=== PATIENT | female | born 1960 | race Caucasian/White ===

== ENCOUNTER 2018-09-16 17:37 | Emergency (ER) | payer OTHER ==
[2018-09-16 17:47] VITALS: BP 103/66; PULSE 69; TEMP 97.8; BMI 21.7
--- NOTE | 2018-09-16 18:47 | PDOC ---
History of Present Illness - General Chief Complaint: Nausea/Vomiting Stated Complaint: VOMITTING/BACK PAIN/RADIATING TO THE FRONT Time Seen by Provider: 09/16/18 18:36 History Source: Patient - History of Present Illness Initial Comments: 09/16/18 19:07 57F with pmh of HTN and anemia presetns to the ED with right flank pain since 3pm today raiating to her groin. Pain is 6/10, no associated with dysuria. Currently non-radiating. Was admitted for renal colic back in 2014 in this institution but patient doesn' t remember. Vomited 3 times since the pain started. Doesn't feel nauseated at the moment. Also complains of a "weakness" over the left chest. Some sort of mild and vague burning sensation starting in her sinus, involving her chest when she takes a deep breath, however not shortness of breath or pain. She clearly has trouble describing the strange feeling. She felt this since yesterday, had an EKG done which was negative. Denies fever, chills, dysuria, chest pain, sob, diarrhea. Past History - Past Medical History Allergies/Adverse Reactions: Allergies Allergy/AdvReac Type Severity Reaction Status Date / Time No Known Drug Allergies Allergy Verified 09/16/18 17:47 Home Medications: Ambulatory Orders Amlodipine Besylate [Norvasc -] 5 mg PO DAILY 09/16/18 Anemia: Yes COPD: No HTN: Yes - Suicide/Smoking/Psychosocial Hx Smoking History: Never smoked Have you smoked in the past 12 months: No Number of Cigarettes Smoked Daily: 0 Hx Alcohol Use: No Drug/Substance Use Hx: No Substance Use Type: None Review of Systems - Review of Systems Able to Perform ROS?: Yes Is the patient limited [place] proficient: No Constitutional: No: Symptoms Reported HEENTM: No: Symptoms Reported Respiratory: No: Symptoms reported Cardiac (ROS): No: Symptoms Reported ABD/GI: Yes: See HPI : No: Symptoms Reported Musculoskeletal: No: Symptoms Reported Integumentary: No: Symptoms Reported All Other Systems: Reviewed and Negative *Physical Exam - Vital Signs Last Vital Signs Temp Pulse Resp BP Pulse Ox 97.8 F 69 18 103/66 100 09/16/18 17:44 09/16/18 17:44 09/16/18 17:44 09/16/18 17:44 09/16/18 17:44 - Physical Exam General Appearance: Yes: Nourished, Appropriately Dressed. No: Apparent Distress HEENT: positive: EOMI, LESLEY, Normal ENT Inspection Respiratory/Chest: positive: Lungs Clear, Normal Breath Sounds. negative: Chest Tender, Respiratory Distress Cardiovascular: positive: Regular Rhythm, Regular Rate, S1, S2 Gastrointestinal/Abdominal: positive: Normal Bowel Sounds, Flat, Soft. negative : Tender Musculoskeletal: positive: CVA Tenderness (R) Extremity: positive: Normal Capillary Refill, Normal Inspection, Normal Range of Motion Integumentary: positive: Normal Color, Dry, Warm Neurologic: positive: Fully Oriented, Normal Mood/Affect, Motor Strength 06/17 ED Treatment Course - LABORATORY CBC & Chemistry Diagram: 09/16/18 18:52 09/16/18 18:52 Medical Decision Making - Medical Decision Making 09/16/18 19:23 57f with right flank pain/tendernesss and h/o renal colic,. Will check ua for evidence of blood in the urine after which we will treat accordingly, ruling out kidney stones. Will also r/o UTi, and pyelo although this is less likely as patient is not febrile, stable vitals. Low suspicion for aortic dissection, patient not hypertensive, and pain level is rather low. Will also check trops and ekg to r/o ND as per the patient's chest complaints. 09/16/18 19:43 EKG: Normal sinus rhythm, Possible left atrial enlargement. Vent Rate 66, MT: 170, QRS: 90, QT/QTC 424/444 09/16/18 20:08 Mild R hydronephrosis on bedside ultrasound. Will correlate with offical ultrasound. UA negative for blood or infection. Official renal US: IMPRESSION: 1. Mild to moderate right-sided hydronephrosis. 2. Increased echogenicity of the right renal parenchyma, suggesting chronic renal parenchymal disease. 3. Right renal cyst. Will discharge with follow up *DC/Admit/Observation/Transfer Diagnosis at time of Disposition: Flank pain - Discharge Dispostion Disposition: HOME Condition at time of disposition: Stable Decision to Admit order: No - Referrals Referrals: Byron Lazcano MD [Primary Care Provider] - - Patient Instructions Printed Discharge Instructions: DI for Flank Pain Additional Instructions: Follow up with Dr. Lazcano within the next 3-4 days. Come back to the emergency department for any new, worsening or concerning symptom. - Post Discharge Activity
[2018-09-16 19:27] LABS: BASO % 0.2 % (0-2.0); HEMATOCRIT 40.5 % (32.4-45.2); HEMOGLOBIN 13.5 GM/dL (10.7-15.3); LYMPH % 10.3 % (8-40); MCH 30.8 pg (25.7-33.7); MCHC 33.4 g/dl (32.0-36.0); MEAN CELL VOLUME 92.2 fl (80-96); MEAN PLT VOLUME 8.7 fl (7.5-11.1); MONO % 3.2 % (3.8-10.2); NEUT % 86.3 % (42.8-82.8); PLATELET COUNT 246 K/MM3 (134-434); RBC 4.39 M/mm3 (3.60-5.2); RDW 12.7 % (11.6-15.6); WHITE BLOOD COUNT 6.5 K/mm3 (4.0-10.0)
[2018-09-16 19:28] LABS: PH,URINE 6.5 (5.0-8.0); URINE APPEARANCE CLEAR; URINE BILIRUBIN NEGATIVE (NEGATIVE); URINE COLOR YELLOW; URINE GLUCOSE (UA) NEGATIVE (NEGATIVE); URINE KETONE 1+ (NEGATIVE); URINE LEUK ESTERASE NEGATIVE (NEGATIVE); URINE NITRITE NEGATIVE (NEGATIVE); URINE PROTEIN NEGATIVE (NEGATIVE); URINE UROBILINOGEN 0.2 mg/dL (0.2-1.0)
[2018-09-16 19:49] LABS: ALBUMIN 3.9 g/dl (3.4-5.0); BILIRUBIN,TOTAL 0.5 mg/dL (0.2-1); BLOOD UREA NITROGEN 8.3 mg/dL (7-18); CALCIUM 9.6 mg/dL (8.5-10.1); CREATININE 0.9 mg/dL (0.55-1.3); TOT PROT 7.2 g/dl (6.4-8.2)
--- NOTE | 2018-09-16 22:40 | PDOC ---
Documentation entered by Randi Leblanc SCRIBE, acting as scribe for Sierra Weaver MD. Sierra Weaver MD: This documentation has been prepared by the scribe, Randi Leblanc SCRIBE, under my direction and personally reviewed by me in its entirety. I confirm that the documentation accurately reflects all work, treatment, procedures, and medical decision making performed by me. Attending Attestation - Resident Resident Name: Travon Coker - ED Attending Attestation I have performed the following: I have examined & evaluated the patient, The case was reviewed & discussed with the resident, I agree w/resident's findings & plan, Exceptions are as noted - HPI HPI: 09/16/18 20:11 The patient is a 57-year-old female with a past medical history significant for HTN and anemia presents to the emergency department with right flank pain since 3:00 pm The patient reports an additional complaint of left-sided chest discomfort. The patient states she is scheduled to follow up with a architectural model maker. The patient indicates she is scheduled for a bone density test on the of this month. - Physicial Exam PE: 09/16/18 22:35 slender 57 yo female with flank pain head ncat neck supple lungs cta b/l cvs [id number] abd no rebound,no0 guarding Mild left flank pain skin warm and dry extremities no deformities neuro axox3,ambulatory psych appropriate - Medical Decision Making EXAM: KIDNEY / RENAL US IMPRESSION: * Mild to moderate right-sided hydronephrosis. * Increased echogenicity of the right renal parenchyma, suggesting chronic renal parenchymal disease. * Right renal cyst. THIS DOCUMENT HAS BEEN ELECTRONICALLY SIGNED Shree Hernadez MD 09/16/2018 20:51 EST 09/16/18 22:38 imp rt flank pain, chronic hydronephrosis pt had no obstructive uropathy , no pyelo discharged home with follow up tomorrow by her PCP
--- NOTE | 2018-09-19 13:39 | EKG ---
Test Reason : Blood Pressure : / mmHG Vent. Rate : 066 BPM Atrial Rate : 066 BPM P-R Int : 170 ms QRS Dur : 090 ms QT Int : 424 ms P-R-T Axes : 054 057 065 degrees QTc Int : 444 ms NORMAL SINUS RHYTHM POSSIBLE LEFT ATRIAL ENLARGEMENT BORDERLINE ECG WHEN COMPARED WITH ECG OF 14-SEP-2018 10:58, NO SIGNIFICANT CHANGE WAS FOUND Confirmed by SHELIA RUTHERFORD MD ([id number]) on 09/19/2018 1:39:36 PM Referred By: Confirmed By:SHELIA RUTHERFORD MD
== END 2018-09-16 21:16 | disposition home or self-care (01) ==
LOC: JER 17:37
PROC: BT43ZZZ Ultrasonography of Bilateral Kidneys (ICD-10-PCS; principal; 2018-09-16)
DX: N13.30 Unspecified hydronephrosis (principal); I10 Essential (primary) hypertension; Z86.2 Personal history of diseases of the blood and blood-forming organs and certain disorders involving the immune mechanism
CPT/HCPCS: 36415; 76775-TC; 80053; 81003; 84484; 84703; 85025; 87086; 93005; 93010; 99283-25

== ENCOUNTER 2019-01-06 17:59 | Emergency (ER) | payer OTHER ==
[2019-01-06 18:11] VITALS: BMI 21.3
--- NOTE | 2019-01-06 18:48 | PDOC ---
Documentation entered by Kaye Foy SCRIBE, acting as scribe for Sierra Weaver MD. Sierra Weaver MD: This documentation has been prepared by the fabianibe, Kaye Foy SCRIBE, under my direction and personally reviewed by me in its entirety. I confirm that the documentation accurately reflects all work, treatment, procedures, and medical decision making performed by me. Attending Attestation - Resident Resident Name: MoBilly - ED Attending Attestation I have performed the following: I have examined & evaluated the patient, The case was reviewed & discussed with the resident, I agree w/resident's findings & plan, Exceptions are as noted - HPI HPI: 01/06/19 19:07 58-year-old female presents with 3 to 4 hours of right-sided flank pain associated with nausea and one episode of vomiting. She has had these similar symptoms a few months ago. 01/06/19 19:18 The patient is a 58 year old female with a significant past medical history of HTN and anemia who presents to the ED with right flank pain for 3 hours. Patient reports that her right flank pain came on suddenly and radiates to her back. Patient notes one episode of NBNB nausea and vomiting. Patient had been seen for similar symptoms multiple times in the past. Patient denies any recent fever,chills, headache or dizziness. She denies any recent constipation or diarrhea.She denies recent dysuria, frequency, urgency or hematuria. She denies recent chest pain or shortness of breath. Allergies: NKA Past surgical history: Hysterectomy Social history: Nonsmoker. Denies EtOH use and recreational drug use. PCP: Joanna Lazcano - Physicial Exam PE: 01/06/19 19:18 GENERAL: Well developed, well nourished. Awake and alert. No acute distress. HEENT: Normocephalic, atraumatic. PERRLA, EOMI. No conjunctival pallor. Sclera are non- icteric. Moist mucous membranes. Oropharynx is clear. NECK: Supple. Full ROM. No JVD. Carotid pulses 2+ and symmetric, without bruits. No thyromegaly. No lymphadenopathy. CARDIOVASCULAR: Regular rate and rhythm. No murmurs, rubs, or gallops. Distal pulses are 2+ and symmetric. PULMONARY: No evidence of respiratory distress. Lungs clear to auscultation bilaterally. No wheezing, rales or rhonchi. ABDOMINAL: Soft. Non-tender. Non-distended. No rebound or guarding. No organomegaly. Normoactive bowel sounds. MUSCULOSKELETAL + right flank pain Normal range of motion at all joints. No bony deformities or tenderness. EXTREMITIES: No cyanosis. No clubbing. No edema. No calf tenderness. SKIN: Warm and dry. Normal capillary refill. No rashes. No jaundice. NEUROLOGICAL: Alert, awake, appropriate. Cranial nerves 2-12 intact. No deficits to light touch and temperature in face, upper extremities and lower extremities. No motor deficits in the in face, upper extremities and lower extremities. Normoreflexic in the upper and lower extremities. Normal speech. Toes are down- going bilaterally. Gait is normal without ataxia. PSYCHIATRIC: Cooperative. Good eye contact. Appropriate mood and affect - Medical Decision Making 01/06/19 19:08 Was seen here several months ago with similar complaint and on September 16, 2018 had a renal ultrasound that showed moderate right renal hydronephrosis with a small simple cyst measuring 1.4 cm x 1.4 cm. Left kidney appeared unremarkable. There were no gross renal stones identified at that time. 01/06/19 23:16 CAT scan of the abdomen pelvis shows mild hydronephrosis but no stones, there is also mild colonic wall thickening that can be inflammatory or infectious colitis UA is negative CBC unremarkable Chemistries unremarkable except for BUN of 19 and a glucose of 125 01/06/19 23:20
[2019-01-06] MEDS ORDERED: KETOROLAC TROMETHAMINE 30 MG/1 ML VIAL IVPUSH ONE (18:58)
--- NOTE | 2019-01-06 19:07 | PDOC ---
History of Present Illness - General Chief Complaint: Pain Stated Complaint: PAIN Time Seen by Provider: 01/06/19 18:34 - History of Present Illness Initial Comments: Ms. Aguilar is a 58 y/o female with PMH significant for hydronephrosis and UPJ obstruction presenting today with right flank pain that radiates down to the groin. Reports that this pain started 3 hours ago. Reports nausea and vomiting x1. She has had similar pain before in the past and has been worked up but has not seen a specialist. Denies fever, chills. Denies shortness of breath. Denies abdominal pain. Denies dysuria or hematuria. Denies constipation/diarrhea. Past History - Past Medical History Allergies/Adverse Reactions: Allergies Allergy/AdvReac Type Severity Reaction Status Date / Time No Known Drug Allergies Allergy Verified 01/06/19 18:06 Home Medications: Ambulatory Orders Amlodipine Besylate [Norvasc -] 5 mg PO DAILY 09/16/18 B12/Iodin/Mag/Zinc/Rachna/[id number] [Adrenoid Capsule] 1 each PO DAILY 01/06/19 Calcium Carbonate [Calcium] 500 mg PO DAILY 01/06/19 Multivitamin [Multiple Vitamins] 1 each PO DAILY 01/06/19 Anemia: Yes COPD: No HTN: Yes - Psycho Social/Smoking Cessation Hx Smoking History: Never smoked Have you smoked in the past 12 months: No Number of Cigarettes Smoked Daily: 0 Hx Alcohol Use: No Drug/Substance Use Hx: No Substance Use Type: None Review of Systems - Review of Systems Comments:: GENERAL/CONSTITUTIONAL: No fever or chills. No weakness._ HEAD, EYES, EARS, NOSE AND THROAT: No change in vision. No change in hearing. No sore throat._ CARDIOVASCULAR: No chest pain or shortness of breath_ RESPIRATORY: Denies cough, hemoptysis_ GASTROINTESTINAL: Reports nausea and vomiting. No diarrhea or constipation._ GENITOURINARY: No dysuria, frequency, or change in urination._ MUSCULOSKELETAL: Reports right flank pain. No neck or back pain._ SKIN: No rash_ NEUROLOGIC: No headache, vertigo, loss of consciousness, or change in strength/ sensation._ ENDOCRINE: No increased thirst. No abnormal weight change_ HEMATOLOGIC/LYMPHATIC: No anemia, easy bleeding, or history of blood clots._ ALLERGIC/IMMUNOLOGIC: No hives or skin allergy._ *Physical Exam - Vital Signs Last Vital Signs Temp Pulse Resp BP Pulse Ox 97.7 F 59 L 18 119/70 100 01/06/19 18:00 01/06/19 18:00 01/06/19 18:00 01/06/19 18:00 01/06/19 18:00 - Physical Exam Comments: GENERAL: Awake, alert, and oriented to person/place/time, in no acute distress_ HEAD: No signs of trauma, normocephalic, atraumatic _ EYES: PERRLA, EOMI, sclera anicteric, conjunctiva clear_ ENT: Hearing grossly normal, nares patent, oropharynx clear without exudates. No uvular deviation. Moist mucosa_ NECK: Normal ROM, supple, no lymphadenopathy, JVD, or masses_ LUNGS: No distress, speaks in full sentences, clear to auscultation bilaterally _ HEART: Regular rate and rhythm, normal S1 and S2, no murmurs appreciated, peripheral pulses normal and equal bilaterally._ ABDOMEN: Soft, nontender, normoactive bowel sounds. No guarding, no rebound. No masses_ BACK: Positive right CVA tenderness. Positive right flank tenderness. EXTREMITIES: Normal inspection, Normal range of motion, no edema. No clubbing or cyanosis_ NEUROLOGICAL: Cranial nerves II through XII grossly intact. Normal speech, normal gait, no focal sensorimotor deficits _ SKIN: Warm, Dry, normal turgor, no rashes or lesions noted_ ED Treatment Course - LABORATORY CBC & Chemistry Diagram: 01/06/19 19:12 01/06/19 19:12 - RADIOLOGY Radiology Studies Ordered: Category Date Time Status ABDOMEN & PELVIS CT WITH CONTR [CT] Stat CT Scan 01/06/19 18:58 Ordered Medical Decision Making - Medical Decision Making 58F hx of right sided hydronephrosis and UPJ obstruction presenting with right flank pain that started 3 hours ago. -cbc, cmp -ct abd/pelv w/ contrast -toradol for pain relief -ua, ucx 01/06/19 20:00 Pt reassessed. Reports pain has significantly improved with Toradol. 01/06/19 20:08 Labs reviewed. Laboratory Tests 01/06/19 01/06/19 01/06/19 19:12 19:12 19:15 WBC 6.5 RBC 4.18 Hgb 13.1 Hct 38.3 MCV 91.5 MCH 31.2 MCHC 34.1 RDW 13.1 Plt Count 270 MPV 8.3 Absolute Neuts (auto) 5.7 Neutrophils % 87.2 H Lymphocytes % 10.0 Monocytes % 2.5 L Eosinophils % 0.0 Basophils % 0.3 Nucleated RBC % 0 Sodium 140 Potassium 3.9 Chloride 109 H Carbon Dioxide 27 Anion Gap 4 L BUN 19.4 H Creatinine 0.7 Est GFR (CKD-EPI)AfAm 112.26 Est GFR (CKD-EPI)NonAf 96.86 Random Glucose 125 H Calcium 9.3 Total Bilirubin 0.3 AST 24 ALT 28 Alkaline Phosphatase 113 Total Protein 6.9 Albumin 3.7 Urine Color Yellow Urine Appearance Cloudy Urine pH 7.5 Ur Specific [place] 1.020 Urine Protein Negative Urine Glucose (UA) Negative Urine Ketones 1+ H Urine Blood Negative Urine Nitrite Negative Urine Bilirubin Negative Urine Urobilinogen 0.2 Ur Leukocyte Esterase Negative 01/06/19 22:49 CT abd/pelv w/ contrast shows moderate right hydronephrosis without hydroureter , no urolithiasis. Possible benign vs malignant stricturing at the UPJ. Mild diffuse wall thickening of the colon, finndings may reflect infectious or inflammatory colitis. 01/06/19 23:52 Pt reassessed. Reports that pain and nausea have improved. Plan to d/c home, f/ u PCP, urology, GI. Patient verbalized understanding and agreement with the plan. All questions answered. Patient understands importance of urology f/u. Discharge - Discharge Information Problems reviewed: Yes Clinical Impression/Diagnosis: Flank pain Condition: Stable Disposition: HOME - Admission No - Follow up/Referral Referrals: Travis Calzada MD., [Staff Physician] - Byron Lazcano MD [Primary Care Provider] - Shayla Cota MD [Staff Physician] - - Patient Discharge Instructions Patient Printed Discharge Instructions: DI for Flank Pain Additional Instructions: Please take Tylenol or Motrin as needed for your pain (follow instructions on the package). Please make a follow up appointment with your primary care doctor, as well as a urologist and a display trimmer (referrals provided here). Your CT scan showed hydronephrosis of the right kidney - it is imperative that you follow up with a urologist. If you experience any new, worsening, or concerning symptoms, including fever, chills, severe back pain, blood in the urine, painful urination, or any other concerns, please return to the emergency department. - Post Discharge Activity Work/Back to School Note: Back to Work
[2019-01-06] MEDS ORDERED: KETOROLAC TROMETHAMINE 30 MG/1 ML VIAL ONE (19:25)
[2019-01-06 19:27] LABS: BASO % 0.3 % (0-2.0); HEMATOCRIT 38.3 % (32.4-45.2); HEMOGLOBIN 13.1 GM/dL (10.7-15.3); MCH 31.2 pg (25.7-33.7); MCHC 34.1 g/dl (32.0-36.0); MEAN CELL VOLUME 91.5 fl (80-96); MEAN PLT VOLUME 8.3 fl (7.5-11.1); MONO % 2.5 % (3.8-10.2); NEUT % 87.2 % (42.8-82.8); PLATELET COUNT 270 K/MM3 (134-434); RBC 4.18 M/mm3 (3.60-5.2); RDW 13.1 % (11.6-15.6); WHITE BLOOD COUNT 6.5 K/mm3 (4.0-10.0)
[2019-01-06 19:35] LABS: PH,URINE 7.5 (5.0-8.0); URINE APPEARANCE CLOUDY; URINE BILIRUBIN NEGATIVE (NEGATIVE); URINE COLOR YELLOW; URINE GLUCOSE (UA) NEGATIVE (NEGATIVE); URINE KETONE 1+ (NEGATIVE); URINE LEUK ESTERASE NEGATIVE (NEGATIVE); URINE NITRITE NEGATIVE (NEGATIVE); URINE PROTEIN NEGATIVE (NEGATIVE); URINE UROBILINOGEN 0.2 mg/dL (0.2-1.0)
[2019-01-06] MEDS ORDERED: SODIUM CHLORIDE 0.9% 500 ML INFUS.BAG IV ONE (19:44)
[2019-01-06 19:54] LABS: ALBUMIN 3.7 g/dl (3.4-5.0); BILIRUBIN,TOTAL 0.3 mg/dL (0.2-1); BLOOD UREA NITROGEN 19.4 mg/dL (7-18); CALCIUM 9.3 mg/dL (8.5-10.1); CREATININE 0.7 mg/dL (0.55-1.3); POTASSIUM 3.9 mmol/L (3.5-5.1); TOT PROT 6.9 g/dl (6.4-8.2)
[2019-01-06 21:34] VITALS: TEMP 98.2
[2019-01-06] MEDS ORDERED: ONDANSETRON 4 MG/2 ML VIAL IVPUSH ONE (22:50)
[2019-01-06] MEDS ORDERED: ONDANSETRON 4 MG/2 ML VIAL ONE ×2 (23:11→23:22)
[2019-01-06 23:59] VITALS: BP 114/75; PULSE 73
== END 2019-01-06 23:59 | disposition home or self-care (01) ==
LOC: SUPCPDRO 17:59 → JER 17:59
PROC: 3E033GC Introduction of Other Therapeutic Substance into Peripheral Vein, Percutaneous Approach (ICD-10-PCS; principal; 2019-01-06)
PROC: 3E0333Z Introduction of Anti-inflammatory into Peripheral Vein, Percutaneous Approach (ICD-10-PCS; 2019-01-06)
DX: R10.31 Right lower quadrant pain (principal); N13.39 Other hydronephrosis; N28.1 Cyst of kidney, acquired; I10 Essential (primary) hypertension
CPT/HCPCS: 36415; 74177-TC; 80053; 81003; 85025; 87086; 99284-25

== ENCOUNTER 2019-02-19 08:56 | Day surgery (SDC) | payer OTHER ==
[2019-02-14 14:37] VITALS: BMI 21.3
[~2019-02-19 08:56] MED LIST: ceFAZolin SODIUM 1 GM VIAL IVPB ONE
[2019-02-19] MEDS ORDERED: MIDAZOLAM HCL 2 MG/2 ML SINGLE DOSE VIAL ONE (12:02)
[2019-02-19] MEDS ORDERED: ceFAZolin SODIUM 1 GM VIAL IVPB ONE (12:40)
[2019-02-19] MEDS ORDERED: oxyCODONE HCL 5 MG TABLET PO PRN ×3 (13:15→15:46)
[2019-02-19] MEDS ORDERED: PROMETHAZINE HCL 25 MG/1 ML VIAL IVPB PRN (13:15)
[2019-02-19] MEDS ORDERED: ONDANSETRON 4 MG/2 ML VIAL IVPUSH PRN (13:15)
[2019-02-19] MEDS ORDERED: GENTAMICIN 80MG PREMIX BAG IVPB ONE (13:39)
[2019-02-19] MEDS ORDERED: LACTATED RINGERS SOLUTION 1,000 ML IV SCH (14:30)
[2019-02-19] MEDS ORDERED: KETOROLAC TROMETHAMINE 30 MG/1 ML VIAL IVPUSH ONE ×2 (15:33→15:35)
[2019-02-19] MEDS ORDERED: HYDROmorphone HCl 2 MG/ML VIAL IVPUSH PRN (15:34)
[2019-02-19] MEDS ORDERED: KETOROLAC TROMETHAMINE 30 MG/1 ML VIAL ONE (15:36)
[2019-02-19] MEDS ORDERED: HYDROmorphone HCl 2 MG/ML VIAL ONE (15:37)
[2019-02-19] MEDS ORDERED: ONDANSETRON 4 MG/2 ML VIAL ONE (15:45)
--- NOTE | 2019-02-19 15:50 | OP ---
Operative Note - Note: Operative Date: 02/19/19 Pre-Operative Diagnosis: Right UPJ obstruction Operation: Right Endopylotomy Findings: obstructed right UPJ Post-Operative Diagnosis: Same as Pre-op Surgeon: Travis Calzada MD. Anesthesia: General Operative Report Dictated: Yes
[2019-02-19] MEDS ORDERED: HYDROmorphone HCl 2 MG/ML VIAL IVPUSH ONE (16:10)
--- NOTE | 2019-02-19 17:24 | OP ---
DATE OF OPERATION: 02/19/2019 PREOPERATIVE DIAGNOSIS: Right ureterovesical junction obstruction. POSTOPERATIVE DIAGNOSIS: Right ureterovesical junction obstruction. PROCEDURE: Right endopyelotomy. HISTORY: This is a very pleasant 58-year-old female with a history of prior UTI, some vague flank discomfort. Preoperative imaging was found to have an obstructive right UPJ and dilated renal pelvis and blunt . After discussing treatment options, patient elected to undergo above-stated procedure. Risks and benefits of treatment, alternative treatments discussed in detail. All questions were answered. ATTENDING SURGEON: Parviz Bowles M.D. BRIEF OPERATIVE NOTE: Patient was brought in the operating room, placed in supine position. General anesthesia was administered. Patient was transferred to dorsal lithotomy position, Ancef was given. At this time, a 0.03 Sensor wire was passed up into the renal pelvis; this was confirmed fluoroscopically. A retrograde ureteropyelogram was performed identifying UPJ obstruction. The was somewhat low in position and it was likely contributing to the etiology of the obstruction. The calyces were again noted to be blunted. At this time a 2nd wire was passed into the renal pelvis. The 7.5-Tristanian flexible ureteroscope was passed over the wire into the renal pelvis. Using a 200-micron fiber at a setting of 1, 10, and 15 megahertz, a posterolateral incision was made in the UPJ. The small amount of fat was seen. The UPJ appeared to be open. The scope was able to be brought in and out across the UPJ. At this time, the scope was removed. An 8-Tristanian Double J stent was attempted to be passed up across the UPJ, however the stent would not advance. In attempting to advance the stent, wire backed down to the proximal ureter below the UPJ. At this time, the 7.5-Tristanian flexible ureteroscope was then advanced into the UPJ. After several unsuccessful attempts, a wire was able to be negotiated across the UPJ and the renal pelvis was examined again. It was examined endoscopically. Again the 8-Tristanian stent would not go up. Therefore, a 6-Tristanian Double J stent was passed over the wire and across the UPJ and was placed in normal position. ADE CROUCH M.D. LIZETTE/[id number]
[2019-02-19 17:36] VITALS: TEMP 97.7
[2019-02-19] MEDS ORDERED: ACETAMINOPHEN INJECTION 100 ML IVPB ONE (18:01)
[2019-02-19] MEDS ORDERED: traMADol HCL 50 MG TABLET ONE (19:45)
[2019-02-19] MEDS ORDERED: traMADol HCL 50 MG TABLET PO ONE (20:00)
[2019-02-19 20:08] VITALS: BP 110/76; PULSE 66
== END 2019-02-19 20:00 | disposition home or self-care (01) ==
LOC: JASU-SURG 08:56
PROVIDERS: ATTEND Urology
PROC: 0T9380Z Drainage of Right Kidney Pelvis with Drainage Device, Via Natural or Artificial Opening Endoscopic (ICD-10-PCS; principal; 2019-02-19 11:00)
DX: N13.5 Crossing vessel and stricture of ureter without hydronephrosis (principal)
CPT/HCPCS: 76000-TC-FY; 94760; J0131

== ENCOUNTER 2019-04-03 04:35 | Emergency (ER) | payer OTHER ==
[2019-04-03 05:15] VITALS: BMI 19.7
[2019-04-03] MEDS ORDERED: ACETAMINOPHEN 1000 MG/100 ML VIAL (NON FORMULARY) IVPB ONE (05:20)
--- NOTE | 2019-04-03 05:30 | PDOC ---
History of Present Illness - General Chief Complaint: Nausea/Vomiting Stated Complaint: VOMITING Time Seen by Provider: 04/03/19 05:12 - History of Present Illness Initial Comments: 04/03/19 05:30 58f with pmh of HTN and anemia presents to the ED with right flank. Pain is 6/ 10 and associated with dysuria. Currently non-radiating. Had a right renal stent removed today by Dr. Calzada. Pain started small and got progressively worse. Numerous episodes of vomiting Doesn't feel nauseated at the moment. Also complains of a chest pain over the left chest. Denies fever, chills, sob, diarrhea. Past History - Past Medical History Allergies/Adverse Reactions: Allergies Allergy/AdvReac Type Severity Reaction Status Date / Time No Known Drug Allergies Allergy Verified 02/19/19 10:33 Home Medications: Ambulatory Orders Amlodipine Besylate [Norvasc -] 5 mg PO DAILY 09/16/18 B12/Iodin/Mag/Zinc/Rachna/[id number] [Adrenoid Capsule] 1 each PO DAILY 01/06/19 Calcium Carbonate [Calcium] 500 mg PO DAILY 01/06/19 Multivitamin [Multiple Vitamins] 1 each PO DAILY 01/06/19 Anemia: Yes Asthma: No Cancer: No Cardiac Disorders: No CVA: No COPD: No CHF: No Dementia: No Diabetes: No GI Disorders: No Disorders: No HTN: Yes Hypercholesterolemia: No Liver Disease: No Seizures: No Thyroid Disease: No - Psycho Social/Smoking Cessation Hx Smoking History: Never smoked Have you smoked in the past 12 months: No Number of Cigarettes Smoked Daily: 0 Hx Alcohol Use: No Drug/Substance Use Hx: No Substance Use Type: None Review of Systems - Review of Systems Able to Perform ROS?: Yes Is the patient limited [place] proficient: No Constitutional: No: Symptoms Reported HEENTM: No: Symptoms Reported Respiratory: No: Symptoms reported Cardiac (ROS): Yes: See HPI ABD/GI: No: Symptoms Reported : Yes: See HPI Musculoskeletal: No: Symptoms Reported Integumentary: No: Symptoms Reported Neurological: No: Symptoms reported All Other Systems: Reviewed and Negative *Physical Exam - Vital Signs Last Vital Signs Temp Pulse Resp BP Pulse Ox 98.1 F 75 18 126/79 99 04/03/19 05:12 04/03/19 05:12 04/03/19 05:12 04/03/19 05:12 04/03/19 05:12 - Physical Exam General Appearance: Yes: Nourished, Appropriately Dressed, Mild Distress HEENT: positive: EOMI, LESLEY, Normal ENT Inspection Respiratory/Chest: positive: Lungs Clear, Normal Breath Sounds. negative: Chest Tender, Respiratory Distress Cardiovascular: positive: Regular Rhythm, Regular Rate, S1, S2 Gastrointestinal/Abdominal: positive: Normal Bowel Sounds, Flat, Soft. negative : Tender Musculoskeletal: positive: CVA Tenderness (R) Extremity: positive: Normal Capillary Refill, Normal Inspection, Normal Range of Motion Integumentary: positive: Normal Color, Dry, Warm Neurologic: positive: Fully Oriented, Alert, Normal Mood/Affect ED Treatment Course - LABORATORY CBC & Chemistry Diagram: 04/03/19 05:45 04/03/19 05:45 Medical Decision Making - Medical Decision Making 04/03/19 05:43 Will r/o UTI with UA and stone with spiral ct. Will consult Elsi in the morning. EKG unchanged from last. Normal sinus rhythm. Trops pending. 04/03/19 07:[address] All labs negative. Spiral CT unchanged from last one. Will pain control with Tylenol and consult Dr. Calzada in the morning. Patient signed out to Dr. Simmons. Discharge - Discharge Information Problems reviewed: Yes Clinical Impression/Diagnosis: Right flank pain - Follow up/Referral - Patient Discharge Instructions - Post Discharge Activity
--- NOTE | 2019-04-03 05:41 | PDOC ---
Attending Attestation - Resident Resident Name: Travon Coker - ED Attending Attestation I have performed the following: I have examined & evaluated the patient, The case was reviewed & discussed with the resident, I agree w/resident's findings & plan - HPI HPI: 04/03/19 05:56 see resident hpi - Physicial Exam PE: 04/03/19 05:56 see resident exam - Medical Decision Making 04/03/19 05:56 58-year-old female status post ureteral stent removal now with return of pain Plan for labs, call to urology prior to imaging Morphine for analgesia
[2019-04-03 05:59] LABS: BASO % 0.2 % (0-2.0); HEMATOCRIT 39.4 % (32.4-45.2); HEMOGLOBIN 13.5 GM/dL (10.7-15.3); LYMPH % 14.5 % (8-40); MCH 31.2 pg (25.7-33.7); MCHC 34.2 g/dl (32.0-36.0); MEAN CELL VOLUME 91.2 fl (80-96); MONO % 4.1 % (3.8-10.2); NEUT % 81.2 % (42.8-82.8); PLATELET COUNT 298 K/MM3 (134-434); RBC 4.32 M/mm3 (3.60-5.2); RDW 13.4 % (11.6-15.6); WHITE BLOOD COUNT 4.4 K/mm3 (4.0-10.0)
[2019-04-03 06:03] LABS: EPI CELLS 12.3 /HPF (0-5/HPF); HYALINE CASTS 29 /lpf (0-8); PH,URINE 5.5 (5.0-8.0); URINE APPEARANCE CLOUDY; URINE BACTERIA 9.1 /hpf (NEGATIVE); URINE BILIRUBIN NEGATIVE (NEGATIVE); URINE COLOR YELLOW; URINE GLUCOSE (UA) NEGATIVE (NEGATIVE); URINE KETONE 2+ (NEGATIVE); URINE LEUK ESTERASE TRACE (NEGATIVE); URINE NITRITE NEGATIVE (NEGATIVE); URINE PROTEIN 2+ (NEGATIVE); URINE RBC 58 /hpf (0-4); URINE UROBILINOGEN 0.2 mg/dL (0.2-1.0); URINE WBC 17 /hpf (0-5)
[2019-04-03 06:16] LABS: ALBUMIN 3.8 g/dl (3.4-5.0); ALK PHOS 126 U/L (45-117); ANION GAP 8 MMOL/L (8-16); BILIRUBIN,TOTAL 0.5 mg/dL (0.2-1); BLOOD UREA NITROGEN 13.6 mg/dL (7-18); CALCIUM 10.1 mg/dL (8.5-10.1); CHLORIDE 106 mmol/L (98-107); CO2 26 mmol/L (21-32); CREATININE 0.9 mg/dL (0.55-1.3); GLUCOSE,RANDOM 112 mg/dL (74-106); POTASSIUM 4.4 mmol/L (3.5-5.1); SGOT/AST 28 U/L (15-37); SGPT/ALT 29 U/L (13-61); SODIUM 140 mmol/L (136-145); TOT PROT 7.2 g/dl (6.4-8.2)
[2019-04-03] MEDS ORDERED: ACETAMINOPHEN INJECTION 100 ML IVPB ONE (06:50)
--- NOTE | 2019-04-03 07:31 | PDOC ---
*Physical Exam - Vital Signs Last Vital Signs Temp Pulse Resp BP Pulse Ox 98.1 F 75 18 126/79 99 04/03/19 05:12 04/03/19 05:12 04/03/19 05:12 04/03/19 05:12 04/03/19 05:12 ED Treatment Course - LABORATORY CBC & Chemistry Diagram: 04/03/19 05:45 04/03/19 05:45 - ADDITIONAL ORDERS Additional order review: Laboratory Results 04/03/19 04/03/19 04/03/19 05:45 05:45 05:45 Sodium 140 Potassium 4.4 Chloride 106 Carbon Dioxide 26 Anion Gap 8 BUN 13.6 Creatinine 0.9 Est GFR (CKD-EPI)AfAm 82.84 Est GFR (CKD-EPI)NonAf 71.48 Random Glucose 112 H Calcium 10.1 Total Bilirubin 0.5 AST 28 ALT 29 Alkaline Phosphatase 126 H Troponin I < 0.02 Total Protein 7.2 Albumin 3.8 Urine Color Yellow Urine Appearance Cloudy Urine pH 5.5 D Ur Specific Gary 1.018 Urine Protein 2+ H Urine Glucose (UA) Negative Urine Ketones 2+ H Urine Blood 3+ H Urine Nitrite Negative Urine Bilirubin Negative Urine Urobilinogen 0.2 Ur Leukocyte Esterase Trace Urine WBC (Auto) 17 Urine RBC (Auto) 58 Urine Casts (Auto) 29 U Epithel Cells (Auto) 12.3 Urine Bacteria (Auto) 9.1 Urine HCG, Qual Negative 04/03/19 05:45 RBC 4.32 MCV 91.2 MCHC 34.2 RDW 13.4 MPV 8.0 Neutrophils % 81.2 Lymphocytes % 14.5 D Monocytes % 4.1 Eosinophils % 0.0 Basophils % 0.2 - Medications Given in the ED: ED Medications Discontinued Medications Generic Name Dose Route Start Last Admin Trade Name Freq PRN Reason Stop Dose Admin Acetaminophen 1,000 mg 04/03/19 05:20 04/03/19 06:40 Ofirmev Injection - IVPB 04/03/19 05:21 1,000 mg ONCE ONE Administration Medical Decision Making - Medical Decision Making 04/03/19 07:29 She is a hypertension managed 58 years old status post renal stent removal yesterday presents with same pain. Labs unremarkable no fever no white count kidney function within normal limit imaging shows no change from prior Case discussed with covering urologist Dr. Refshafen patient feels better after IV pain medications will have patient follow-up with urology today patient instructed to return to ED for any fever severe worsening symptoms or for any concerns Her repeat abdominal exam is benign at this time Findings, the need for follow-up and strict return instructions discussed with patient. Discharge - Discharge Information Problems reviewed: Yes Clinical Impression/Diagnosis: Right flank pain - Admission No - Follow up/Referral Referrals: Travis Calzada MD., [Staff Physician] - - Patient Discharge Instructions Patient Printed Discharge Instructions: DI for Flank Pain Additional Instructions: Drink plenty of fluids. Okay to take Aleve 1-2 tabs twice a day for the next 1 to 2 days. Follow-up today with Dr. Calzada urology. Return to ED for any fever uncontrollable pain vomiting or for any concerns. - Post Discharge Activity Work/Back to School Note: Back to Work
[2019-04-03 07:53] VITALS: BP 127/87; PULSE 66; TEMP 98.4
--- NOTE | 2019-04-03 16:10 | EKG ---
Test Reason : Blood Pressure : / mmHG Vent. Rate : 073 BPM Atrial Rate : 073 BPM P-R Int : 166 ms QRS Dur : 094 ms QT Int : 408 ms P-R-T Axes : 047 070 058 degrees QTc Int : 449 ms NORMAL SINUS RHYTHM POSSIBLE LEFT ATRIAL ENLARGEMENT LEFT VENTRICULAR HYPERTROPHY INCOMPLETE RBBB ABNORMAL ECG Confirmed by MD JOSH, DRISS ([id number]) on 04/03/2019 4:09:51 PM Referred By: Confirmed By:DRISS MORENO MD
== END 2019-04-03 08:00 | disposition home or self-care (01) ==
LOC: JER 04:35
PROC: 3E033NZ Introduction of Analgesics, Hypnotics, Sedatives into Peripheral Vein, Percutaneous Approach (ICD-10-PCS; principal; 2019-04-03)
DX: R10.31 Right lower quadrant pain (principal)
CPT/HCPCS: 36415; 74176-TC; 80053; 81003; 84484; 84703; 85025; 87086; 93005; 93010; 99285-25; J0131